=== PATIENT | female | born 1970 | race Caucasian/White ===

== ENCOUNTER 2025-01-30 16:07 | Emergency (ER) | payer MEDICARE, SELFPAY ==
[2025-01-30 16:23] VITALS: BP 149/89; PULSE 84; RESP 20; TEMP 37.4; O2SAT 98
[2025-01-30 16:40] LABS: EDSTREPNEGPOS1 Negative (Negative)
--- NOTE | 2025-01-30 16:42 | ED_ITS ---
HPI - URI/Sore Throat General Chief Complaint: Upper Respiratory Infection Stated Complaint: Nasal Congestion/Sore Throat Time Seen by Provider: 01/30/25 16:37 Source: patient and RN notes reviewed Mode of arrival: ambulatory Limitations: no limitations History of Present Illness HPI Narrative: Patient presents today with a 2 week history of cough, nasal congestion, rhinorrhea, intermittent shortness of breath. She has had slight sore throat today but it is improving throughout the day. The remainder of her symptoms are worsening since onset. Denies fever. She has tried some Sinus medication with some mild improvement. No history of asthma or COPD. Related Data Home Medications ?Medication ?Instructions ?Recorded ?Confirmed ?Last Taken ?Type gabapentin 400 mg capsule mg 01/30/25 Unknown History oxycodone 30 mg tablet mg 01/30/25 Unknown History Allergies Allergy/AdvReac Type Severity Reaction Status Date / Time Penicillins Allergy Intermediate Hives Verified 01/30/25 16:47 PMFSH Comments At time of signature, I have reviewed and agree with nursing past medical, surgical, social and family history unless otherwise noted. Please see nursing chart for further information. There is no relevant family history pertinent to the presenting complaint Exam Narrative: GENERAL: Mildly ill-appearing, well-nourished, and in no acute distress. HEAD: Normocephalic, atraumatic. EYES: EOMI. No redness or drainage. Conjunctivae normal. ENT: Mucous membranes pink and moist. Nares congested with rhinorrhea. TMs normal bilaterally. Throat normal. Uvula midline. NECK: Normal AROM. Supple. No lymphadenopathy. CHEST: No respiratory distress. Clear to auscultation. HEART: Regular rate and rhythm. No murmur appreciated. EXTREMITIES: Normal range of motion. No edema. SKIN: Warm, dry, no rash. Capillary refill normal. Normal skin turgor. NEURO: No focal deficits. Alert and oriented x3. Gait steady. PSYCH: Normal affect. No signs of depression or anxiety. Course Course Level of Care: Express Care Visit Vital Signs Vital signs: Vital Signs Temperature 99.3 F 01/30/25 16:23 Pulse Rate 84 01/30/25 16:23 Respiratory Rate 20 01/30/25 16:23 Blood Pressure 149/89 H 01/30/25 16:23 Pulse Oximetry 98 01/30/25 16:23 Oxygen Delivery Room Air 01/30/25 16:23 Temperature 99.3 F 01/30/25 16:23 Pulse Rate 84 01/30/25 16:23 Respiratory Rate 20 01/30/25 16:23 Blood Pressure 149/89 H 01/30/25 16:23 Pulse Oximetry 98 01/30/25 16:23 Oxygen Delivery Room Air 01/30/25 16:23 Reviewed MDM - URI/Sore Throat MDM Narrative Medical decision making narrative: Patient presents today with a 2 week history of cough, nasal congestion, rhinorrhea, intermittent shortness of breath. She has had slight sore throat today but it is improving throughout the day. The remainder of her symptoms are worsening since onset. Denies fever. She has tried some Sinus medication with some mild improvement. Upon exam, patient is mildly ill appearing congestion, rhinorrhea. Her rapid strep negative. Culture pending. Patient will be treated with antibiotics for bacterial sinusitis as symptoms have been persistent and worsening for the last 2 weeks. Patient agrees with plan. Vital signs stable. Anticipatory guidance given. Differential Diagnosis Differential diagnosis: Likely upper respiratory infection, sinusitis, viral infection, bronchitis and other (Strep throat) Lab Data Attestation: I reviewed the patient's lab results. Labs: Lab Results 01/30/25 Range/Units 16:38 POC Grp A Strep Screen Negative (Negative) Critical Care Time Critical Care Time Critical Care Time: No Discharge Plan Discharge Clinical Impression: Sinusitis Qualifiers: Sinusitis location: unspecified location Chronicity: acute Recurrence: non- recurrent Qualified Code(s): J01.90 - Acute sinusitis, unspecified Patient Disposition: Home Condition: Stable Instructions: Antibiotic Form, Sinusitis (ED) Additional Instructions: Please take the doxycycline as prescribed until gone. Continue sinus medication as needed. Follow-up with your PCP in 3 days if symptoms are not improving. Patient Language: German Prescriptions: New doxycycline hyclate 100 mg tablet 100 mg PO BID 7 Days Qty: 14 0RF No Action gabapentin 400 mg capsule oxycodone 30 mg tablet Follow-up/Referrals: [facility] [Primary Care Provider, Internal Medicine] Time of Disposition: 16:48
== END 2025-01-30 16:59 | disposition home or self-care (01) ==
PROVIDERS: Emergency Provider Nurse Practitioner
DX: J01.90 Acute sinusitis, unspecified (principal)
CPT/HCPCS: 87081; 87880; 99203; G0463